=== PATIENT | male | born 1985 ===

== ENCOUNTER 2021-07-14 09:06 | Outpatient (REF) | payer OTHER, SELFPAY | END 2021-07-14 09:07 | disposition home or self-care (01) | LOC: HO.HMGCLDS 09:06 | PROVIDERS: Visit Provider Internal Medicine | DX: Z20.822 Contact with and (suspected) exposure to COVID-19 (principal) | CPT/HCPCS: C9803; U0003; U0005 ==

== ENCOUNTER → 2023-09-20 07:42 | Outpatient (BNVA) | payer OTHER, SELFPAY | PROVIDERS: PCP Pediatrics; Visit Provider Physician Assistant | DX: S39.012A Strain of muscle, fascia and tendon of lower back, initial encounter (principal); X50.3XXA Overexertion from repetitive movements, initial encounter | CPT/HCPCS: 99204 ==

== ENCOUNTER → 2023-10-04 08:26 | Outpatient (BNVA) | payer OTHER, SELFPAY | PROVIDERS: PCP Pediatrics; Visit Provider Physician Assistant | DX: S39.012D Strain of muscle, fascia and tendon of lower back, subsequent encounter (principal); X50.3XXD Overexertion from repetitive movements, subsequent encounter | CPT/HCPCS: 99213 ==

== ENCOUNTER → 2023-10-25 08:41 | Outpatient (BNVA) | payer OTHER, SELFPAY | PROVIDERS: PCP Pediatrics; Visit Provider Physician Assistant | DX: S39.012D Strain of muscle, fascia and tendon of lower back, subsequent encounter (principal); X50.3XXD Overexertion from repetitive movements, subsequent encounter | CPT/HCPCS: 99214 ==

== ENCOUNTER → 2023-11-15 09:19 | Outpatient (BNVA) | payer OTHER, SELFPAY | PROVIDERS: Visit Provider Physician Assistant Medical | DX: S39.012D Strain of muscle, fascia and tendon of lower back, subsequent encounter (principal); X50.3XXD Overexertion from repetitive movements, subsequent encounter | CPT/HCPCS: 99213 ==

== ENCOUNTER 2023-11-29 07:58 | Outpatient (REF) | payer OTHER, SELFPAY ==
--- NOTE | ~2023-11-29 | MR_ITS ---
EXAMINATION: MR LUMBAR SPINE WITHOUT CONTRAST CLINICAL INFORMATION: Change in pain. Prior fall and back injury 3 months ago. COMPARISON: None available. TECHNIQUE: Multiplanar, multisequence imaging was obtained. Slightly limited study with motion artifacts. FINDINGS: VERTEBRAL BODIES AND PARASPINAL STRUCTURES: There is very mild anterosuperior endplate edema at the T12 and L2 levels, which may be reactive to mild degenerative spurring. The discs are well-hydrated. There are no compression fractures or significant subluxations. The paraspinal soft tissues are normal. CONUS MEDULLARIS AND CAUDA EQUINA: The distal cord, conus tip, and cauda equina nerve roots are normal. SPINAL LEVELS: L1-L2: No disc pathology, central canal stenosis, or foraminal narrowing. Mild anterior endplate spurring. L2-L3: No disc abnormality. No central canal stenosis or foraminal narrowing. L3-L4: Very mild facet arthropathy. Minimal annular bulge without central canal stenosis or foraminal narrowing. L4-L5: Mild facet arthropathy and minimal disc bulge. No central canal stenosis. Disc minimally encroaches upon the neural foramina. L5-S1: No disc abnormality. Mild facet arthropathy without central canal stenosis. Bulging disc abuts the exiting right L5 nerve root without compression deformity. MR/MR lumbar spine wo con IMPRESSION: Very mild spondylitic changes. No focal disc protrusion or central canal stenosis. Bulging disc at L5-S1 abuts the exiting right L5 nerve root in the neural foramen without compression deformity. Very mild anterosuperior endplate edema and osseous spurring at the T12 and L2 levels.
== END 2023-11-29 07:59 | disposition home or self-care (01) ==
LOC: HO.MRI 07:58
PROVIDERS: Visit Provider Internal Medicine
DX: M51.36 Other intervertebral disc degeneration, lumbar region (principal)
CPT/HCPCS: 72148

== ENCOUNTER → 2023-12-19 10:06 | Outpatient (BNVA) | payer OTHER, SELFPAY | PROVIDERS: Visit Provider Physician Assistant | DX: S39.012D Strain of muscle, fascia and tendon of lower back, subsequent encounter (principal); X50.3XXD Overexertion from repetitive movements, subsequent encounter | CPT/HCPCS: 99214 ==

== ENCOUNTER 2024-01-09 09:15 | Outpatient (AMB) | payer OTHER, SELFPAY ==
--- NOTE | 2024-01-09 09:26 | MHC.OFFVIS ---
Vital Signs 01/09/24 09:33 Height 5 ft 8 in Weight 257 lb 8 oz BMI 39.1 BP 128/76 Blood Pressure Location Lt brachial Position Sitting Respiration 16 Pulse 63 Pulse Source Pulse Oximeter Pulse Oximetry (%) 98 Oxygen Delivery Method Room Air Intake Visit Reasons: Low Back Pain/Disc Herniation Intake Note: Patient comes in for initial visit was referred by work connection. Reports pain 9/10. Allergies No Known Allergies Allergy (Verified 01/09/24 09:33) HPI Comments Details: Marcial is very pleasant 38 years old gentleman who presents in my office by referral were connections. He reported that 3 months ago he missed step at his work and while preventing himself from falling felt severe pain in the center of his lumbar spine. He reports that pain is severe and level of the pain is 10/10. His pain is mostly aggravated when he is standing and walking. He feels almost no pain when positioned flattened bed. He can not sleep normally. 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 In terms of tissue damage he reports his pain as dull, sore, hurting, aching, heavy sensation. He also reports his pain as aching and pins and needle sensation. Were connection prescribed him lidocaine patches naproxen and methocarbamol. He has MRI available in the chart dictation see as below. Physical therapy was done for him 6 sessions he reports only aggravation of the pain. His past medical history is significant for kidney stones no surgical history I presume kidney stones were passing on that self he admits smoking cigarettes 1 pack per week he admits drinking alcohol 12 packs per week he admits drinking lots of soda and caffeinated beverages. He denies recreational drugs. Review of Systems Const All systems reviewed & are unremarkable except as noted in HPI and below Reports no additional complaints ENT Reports Normal hearing present Card Reports no additional complaints Resp Reports no additional complaints GI Reports no additional complaints Reports as per HPI Musc Reports as per HPI Neuro Reports no additional complaints, Reports Normal hearing present, Denies Abnormal speech present, Denies confusion and Denies Sensory deficit (Neuro) Psych Reports no additional complaints and Denies confusion Physical Exam Vital Signs: Last Vital Signs Pulse 63 01/09/24 09:33 Resp 16 01/09/24 09:33 BP 128/76 01/09/24 09:33 Pulse Ox 98 01/09/24 09:33 Oxygen Delivery Method Room Air 01/09/24 09:33 BMI result Body Mass Index 39.1 Const General: no acute distress; No confusion Nutritional Appearance: obese morbidly obese Orientation/consciousness: patient oriented x3 and No confusion Eyes General: appearance normal, both eyes and all related structures Pupils: Equal, round and reactive pupils present EOM: EOMs intact bilaterally Neck Neck: Yes full ROM Chest Chest palpation & inspection: normal inspection of the chest Resp Effort & Inspection: normal respiratory effort, able to speak in complete sentences, normal respiratory pattern, no audible wheezes and no cough Cardio Jugular venous distension: no JVD GI Inspection: Yes normal to inspection Back/Spine/Pelvis Other: Able to stand on bilateral tiptoes in bilateral heels demonstrating normal strength of bilateral lower extremities. Able to flex himself forward to about 80 degrees before his pain starts to bother him, unable to flex himself backwards. SLR is negative bilaterally. Lassegue is negative bilaterally. Travis test is negative bilaterally. Stinchfield test is negative bilaterally. Loading test is positive bilaterally. Valsalva maneuver is negative, Neuro General: patient oriented x3, gait normal and No confusion Cranial nerves: Yes CN's II-XII intact bilaterally, Yes Equal, round and reactive pupils present, Yes Normal hearing present and Yes Ability to bilaterally elevate shoulders present Speech: No Abnormal speech present Gait exam (Neuro): Normal gait present Motor exam (neuro): 5/5 motor strength present throughout Sensory Exam: No Sensory deficit (Neuro) Extrem General: No pedal edema Psych Speech and movement: Normal speech and movement present Affect: normal affect Attitude: cooperative Thought process: Normal thought process present Thought content: Normal thought content present Insight: Good insight present (Psych) Judgement: Good judgement present (Psych) Results Reviewed Results Reviewed: MRI lumbar spine 11/29/2023. Findings: There is very mild enter superior endplate edema at T12 and L1-2 levels which may be reactive to mild degenerative spurring. The discs are well hydrated. There are no compression fractures or significant subluxations. The paraspinal soft tissues are normal. Conus medullaris and cauda equina. Distal cord conus tip and cauda equina nerve roots are normal. Spinal levels: L1-L2 no disc pathology central canal stenosis foraminal narrowing mild anterior endplate spurring. L2-L3 no disc abnormality no central canal or neural foraminal narrowing. L3-L4: Very mild facet arthropathy minimal annular disc bulge without central canal stenosis or foraminal narrowing. L4-5 mild facet arthropathy and minimal disc bulge. No central stenosis. Disc minimally encroaches upon the neural foramina. L5-S1: No disc abnormality mild facet arthropathy without central canal stenosis. Bulging discs abuts the exiting right L4 nerve root without compression deformity. Assessment & Plan Assessment & Plan (1) Obesity (BMI 30-39.9): Code(s): E66.9 - Obesity, unspecified Category: Medical (2) Spondylosis of lumbar region without myelopathy or radiculopathy: Code(s): M47.816 - Spondylosis without myelopathy or radiculopathy, lumbar region Category: Medical Plan I will schedule this patient for diagnostic bilateral medial branch block L3-L4 does ramus L5. He completed physical therapy was pain aggravation only. He is taking NSAIDs and NSAIDs do not help him. The treatment of his condition could include diagnostic medial branch block and after that the patient could be offered radiofrequency ablation or sprint PNS if the diagnostic medial branch block will be positive for lower lumbar spine facet arthropathy. Coding Level of Care Code New Pt Level 3 (70120) Diagnoses Obesity (BMI 30-39.9) E66.9 Spondylosis of lumbar region without myelopathy or radiculopathy M47.816
[2024-01-09 09:33] VITALS: BP 128/76; PULSE 63; RESP 16; O2SAT 98; BMI 39.1
== END 2024-01-09 10:34 | disposition home or self-care (01) ==
PROVIDERS: Visit Provider Anesthesiology
DX: E66.9 Obesity, unspecified (principal); M47.816 Spondylosis without myelopathy or radiculopathy, lumbar region
CPT/HCPCS: 99203

== ENCOUNTER → 2024-01-09 09:15 | Outpatient (BNVA) | payer OTHER, SELFPAY | PROVIDERS: Visit Provider Anesthesiology | DX: M47.816 Spondylosis without myelopathy or radiculopathy, lumbar region (principal); E66.9 Obesity, unspecified; Z68.39 Body mass index [BMI] 39.0-39.9, adult | CPT/HCPCS: 99202 ==

== ENCOUNTER → 2024-01-23 09:29 | Outpatient (BNVA) | payer OTHER, SELFPAY | PROVIDERS: Visit Provider Physician Assistant | DX: S39.012D Strain of muscle, fascia and tendon of lower back, subsequent encounter (principal); X50.3XXD Overexertion from repetitive movements, subsequent encounter | CPT/HCPCS: 99213 ==

== ENCOUNTER → 2024-02-22 14:57 | Outpatient (BNVA) | payer OTHER, SELFPAY | PROVIDERS: Visit Provider Physician Assistant | DX: S39.012D Strain of muscle, fascia and tendon of lower back, subsequent encounter (principal); X50.3XXD Overexertion from repetitive movements, subsequent encounter | CPT/HCPCS: 99213 ==

== ENCOUNTER → 2024-03-12 14:58 | Outpatient (BNVA) | payer OTHER, SELFPAY | PROVIDERS: Visit Provider Physician Assistant | DX: M54.50 Low back pain, unspecified (principal) | CPT/HCPCS: 99213 ==

== ENCOUNTER → 2024-04-10 15:22 | Outpatient (BNVA) | payer OTHER, SELFPAY | PROVIDERS: Visit Provider Physician Assistant | DX: S39.012D Strain of muscle, fascia and tendon of lower back, subsequent encounter (principal); X50.3XXD Overexertion from repetitive movements, subsequent encounter | CPT/HCPCS: 99213 ==

== ENCOUNTER 2024-04-15 08:09 | Outpatient (REF) | payer OTHER, SELFPAY | END 2024-04-15 08:10 | disposition home or self-care (01) | LOC: CF 08:09 | PROVIDERS: Visit Provider Anesthesiology | DX: M47.816 Spondylosis without myelopathy or radiculopathy, lumbar region (principal) | CPT/HCPCS: 64493; 64494; J2795; Q9967 ==

== ENCOUNTER 2024-04-15 08:12 | Outpatient (AMB) | payer OTHER, SELFPAY ==
--- NOTE | 2024-04-15 08:57 | A.OFFVIS_ITS ---
Vital Signs 04/15/24 10:10 04/15/24 10:11 Height 5 ft 8 in 5 ft 8 in Weight 257 lb 8 oz 257 lb 8 oz BMI 39.1 39.1 BP 114/70 108/76 Blood Pressure Location Lt brachial Lt brachial Position Sitting Sitting Respiration 16 16 Pulse 60 60 Pulse Source Pulse Oximeter Pulse Oximeter Pulse Oximetry (%) 99 99 Oxygen Delivery Method Room Air Room Air Comment pre-op post-op Intake Visit Reasons: BILATERAL DIAGNOSTIC L3, L4, DRL5 MBB Allergies No Known Allergies Allergy (Verified 04/15/24 10:12) Physical Exam Vital Signs: Last Vital Signs Pulse 60 04/15/24 10:11 Resp 16 04/15/24 10:11 BP 108/76 04/15/24 10:11 Pulse Ox 99 04/15/24 10:11 Oxygen Delivery Method Room Air 04/15/24 10:11 BMI result Body Mass Index 39.1 Assessment & Plan Assessment & Plan (1) Spondylosis of lumbar region without myelopathy or radiculopathy: Code(s): M47.816 - Spondylosis without myelopathy or radiculopathy, lumbar region Category: Medical Plan Diagnostic medial branch block L3,L4 dorsal ramus L5 bilateral.? ? ?Informed consent was explained to the patient. All questions were explained and? answered.? The patient was taken inside the operating room where she was positioned prone on the operating table. Time-out was performed delineating correct site, side, the nature of the procedure, patient's allergy, . All operating room staff was participating in OR time-out procedure. ? ? The lower back was prepped with ChloraPrep and draped with sterile towels.? C- arm was brought over the operating field and sq picture of L4-, L5 vertebra and S1 AREA were delineated on the screen.? Point of interest were delineated as confluence of superior articular process of L4 and L5 vertebra bilaterally with corresponding transverse processes as well as confluence of the sacral alae bilaterally with superior articular process of S1.? The projection of the point of interest to the skin were injected with the small amount of local anesthetic lidocaine 2% mixed with ropivacaine 0.5% 1-1 approcimately 1 cc.? After that 22 gauge 3.5 inch spinal needle was driven sequentially to the points of interest i n tunnel vision fashion. After needles gently contacted the bone at the point of interests the needle was injected with small amount of the contrast.? The injection of the contrast did not demonstrate any intravascular or intrathecal spread of the contrast.? After that injection of the? ropivacaine 0.5%-1cc was performed at each needle location.??after that the needles were removed and Bandaids were applied. ? Upon completion of the injections? needle was? removed and sterile Band-Aids were applied.? The patient tolerated procedure very well. Orders: Orders FL guidance in treatment room Today M47.816 - Spondylosis without myelopathy or radiculopathy, lumbar region Coding Level of Care Code Procedure Only Diagnoses Spondylosis of lumbar region without myelopathy or radiculopathy M47.816
[2024-04-15 10:10] VITALS: BP 114/70; PULSE 60; RESP 16; O2SAT 99; BMI 39.1
[2024-04-15 10:11] VITALS: BP 108/76; PULSE 60; RESP 16; O2SAT 99; BMI 39.1
== END 2024-04-15 09:49 | disposition home or self-care (01) ==
LOC: HO.PMCPRC 08:12
PROVIDERS: Visit Provider Anesthesiology
DX: M47.816 Spondylosis without myelopathy or radiculopathy, lumbar region (principal)
CPT/HCPCS: 64493; 64494

== ENCOUNTER 2024-04-21 09:04 | Outpatient (AMB) | payer OTHER, SELFPAY ==
--- NOTE | 2024-04-21 09:10 | MHC.OFFVIS ---
Vital Signs 04/21/24 09:16 Height 5 ft 8 in Weight 260 lb 4 oz BMI 39.6 BP 130/78 Blood Pressure Location Lt brachial Position Sitting Respiration 16 Pulse 70 Pulse Source Pulse Oximeter Pulse Oximetry (%) 98 Oxygen Delivery Method Room Air Intake Visit Reasons: BILATERAL DIAGNOSTIC L3, L4, DRL5 MBB Intake Note: Patient comes in for post-op. Reports pain 6/10. Allergies No Known Allergies Allergy (Verified 04/21/24 09:10) HPI Comments Details: Marcial is back in my office after diagnostic medial branch block L3-L4 does ramus L5. Patient reports pain aggravation after the injection. He reports no pain improvement at all. He reports flexing forward aggravates his pain. However there is no signs of sacroiliitis Travis test is negative. His MRI is also not very impressive. The report of the MRI is as below. On the MRI there is no significant endplate changes which would justify consideration about vertebrogenic pain. We discussed situation with the patient today. I also recommended him to start physical therapy. I also recommended him to purchase 10s unit online and tried 10s unit at his household. We decided that I will schedule appointment with him in 2 months. Prior: Were connection referral. 3 months ago he missed step at his work and while preventing himself from falling felt severe pain in the center of his lumbar spine. He reports that pain is severe and level of the pain is 10/10. His pain is mostly aggravated when he is standing and walking. He feels almost no pain when positioned flattened bed. He also reports his pain as aching and pins and needle sensation. Work connection prescribed him lidocaine patches naproxen and methocarbamol. He has MRI available in the chart dictation see as below. Physical therapy was done for him 6 sessions he reports only aggravation of the pain. His past medical history is significant for kidney stones no surgical history I presume kidney stones were passing on that self he admits smoking cigarettes 1 pack per week he admits drinking alcohol 12 packs per week he admits drinking lots of soda and caffeinated beverages. He denies recreational drugs. Review of Systems Const All systems reviewed & are unremarkable except as noted in HPI and below ENT Reports Normal hearing present Neuro Reports Normal hearing present, Denies Abnormal speech present, Denies confusion and Denies Sensory deficit (Neuro) Psych Denies confusion Physical Exam Vital Signs: Last Vital Signs Pulse 70 04/21/24 09:16 Resp 16 04/21/24 09:16 BP 130/78 04/21/24 09:16 Pulse Ox 98 04/21/24 09:16 Oxygen Delivery Method Room Air 04/21/24 09:16 BMI result Body Mass Index 39.6 Const General: no acute distress; No confusion Nutritional Appearance: obese morbidly obese Orientation/consciousness: patient oriented x3 and No confusion Eyes General: appearance normal, both eyes and all related structures Pupils: Equal, round and reactive pupils present EOM: EOMs intact bilaterally Neck Neck: Yes full ROM Chest Chest palpation & inspection: normal inspection of the chest Resp Effort & Inspection: normal respiratory effort, able to speak in complete sentences, normal respiratory pattern, no audible wheezes and no cough Cardio Jugular venous distension: no JVD GI Inspection: Yes normal to inspection Back/Spine/Pelvis Other: Able to stand on bilateral tiptoes in bilateral heels demonstrating normal strength of bilateral lower extremities. Able to flex himself forward to about 80 degrees before his pain starts to bother him, unable to flex himself backwards. SLR is negative bilaterally. Lassegue is negative bilaterally. Travis test is negative bilaterally. Stinchfield test is negative bilaterally. Loading test is positive bilaterally. Valsalva maneuver is negative, Neuro General: patient oriented x3, gait normal and No confusion Cranial nerves: Yes CN's II-XII intact bilaterally, Yes Equal, round and reactive pupils present, Yes Normal hearing present and Yes Ability to bilaterally elevate shoulders present Speech: No Abnormal speech present Gait exam (Neuro): Normal gait present Motor exam (neuro): 5/5 motor strength present throughout Sensory Exam: No Sensory deficit (Neuro) Extrem General: No pedal edema Psych Speech and movement: Normal speech and movement present Affect: normal affect Attitude: cooperative Thought process: Normal thought process present Thought content: Normal thought content present Insight: Good insight present (Psych) Judgement: Good judgement present (Psych) Assessment & Plan Assessment & Plan (1) Spondylosis of lumbar region without myelopathy or radiculopathy: Code(s): M47.816 - Spondylosis without myelopathy or radiculopathy, lumbar region Category: Medical (2) Low back pain: Code(s): M54.50 - Low back pain, unspecified Category: Medical Plan We agreed that I will schedule him for physical therapy with [place] physical [place] [facility] We also agreed that he will obtain 10s unit online. He wants to try this device. I will see him in 2 months. Unfortunately on the MRI there is nothing which could point out to his pain. No vertebra genic changes. The Travis test is negative bilaterally. He reports pain aggravation with flexing forward. He reports absence of pain when he lies down. Orders: Orders PT Evaluation and Treatment Today M47.816 - Spondylosis without myelopathy or radiculopathy, lumbar region, M54.50 - Low back pain, unspecified Patient Instructions: I here by testify that I spent 32 minutes in conversation with this patient as well as planning his care and organizing this note. Coding Level of Care Code Est Pt Level 4 (62337) Diagnoses Spondylosis of lumbar region without myelopathy or radiculopathy M47.816 Low back pain M54.50
[2024-04-21 09:16] VITALS: BP 130/78; PULSE 70; RESP 16; O2SAT 98; BMI 39.6
== END 2024-04-21 09:56 | disposition home or self-care (01) ==
PROVIDERS: Visit Provider Anesthesiology
DX: M47.816 Spondylosis without myelopathy or radiculopathy, lumbar region (principal); M54.50 Low back pain, unspecified
CPT/HCPCS: 99214

== ENCOUNTER → 2024-04-21 09:04 | Outpatient (BNVA) | payer OTHER, SELFPAY | PROVIDERS: Visit Provider Anesthesiology | DX: M47.816 Spondylosis without myelopathy or radiculopathy, lumbar region (principal); M54.50 Low back pain, unspecified | CPT/HCPCS: 99212 ==

== ENCOUNTER → 2024-04-21 10:43 | Outpatient (BNVA) | payer OTHER, SELFPAY | PROVIDERS: Visit Provider Physician Assistant Medical | DX: S39.012D Strain of muscle, fascia and tendon of lower back, subsequent encounter (principal); X50.3XXD Overexertion from repetitive movements, subsequent encounter | CPT/HCPCS: 99213 ==

== ENCOUNTER → 2024-05-01 14:57 | Outpatient (BNVA) | payer OTHER, SELFPAY | PROVIDERS: Visit Provider Physician Assistant | DX: M47.16 Other spondylosis with myelopathy, lumbar region (principal) | CPT/HCPCS: 99213 ==

== ENCOUNTER → 2024-05-21 14:55 | Outpatient (BNVA) | payer OTHER, SELFPAY | PROVIDERS: Visit Provider Physician Assistant | DX: S39.012D Strain of muscle, fascia and tendon of lower back, subsequent encounter (principal); X50.3XXD Overexertion from repetitive movements, subsequent encounter | CPT/HCPCS: 99213 ==

== ENCOUNTER → 2024-05-29 15:07 | Outpatient (BNVA) | payer OTHER, SELFPAY | PROVIDERS: Visit Provider Physician Assistant Medical | DX: M47.816 Spondylosis without myelopathy or radiculopathy, lumbar region (principal); M51.379 Other intervertebral disc degeneration, lumbosacral region without mention of lumbar back pain or lower extremity pain; S39.012D Strain of muscle, fascia and tendon of lower back, subsequent encounter; X50.3XXD Overexertion from repetitive movements, subsequent encounter | CPT/HCPCS: 99213 ==

== ENCOUNTER → 2024-06-27 14:56 | Outpatient (BNVA) | payer OTHER, SELFPAY | PROVIDERS: Visit Provider Physician Assistant | DX: M47.16 Other spondylosis with myelopathy, lumbar region (principal); M51.379 Other intervertebral disc degeneration, lumbosacral region without mention of lumbar back pain or lower extremity pain | CPT/HCPCS: 99213 ==

== ENCOUNTER 2024-07-24 15:00 | Outpatient (RCR) | payer OTHER, BC, SELFPAY ==
--- NOTE | 2024-05-12 14:32 | MHC.PT.EP ---
[facility] [place] Office [place] Office [place] [facility] [address] Tom Villatoro [address] [phone] F: [phone] F: [phone] F: [phone] F: [phone] Physical Therapy Plan of Care Date of Evaluation: 05/12/24 Date of Surgery: Diagnosis: low back pain Assessment: Patient is a 38 year old R handed male who presents with s/s consistent with low back pain. He works with daily job demands including walk, lifting, climbing stairs. Patient past medical history includes back related injury > 5 years ago that completely resolved per pt report. Current impairments include pain, flexibility, posture, ROM, strength, activity tolerance and functional mobility. Functional limitations include decreased ability to walk, stand, drive, lift, climb stairs and be on feet for prolonged periods of time. Patient is motivated with good rehab potential. Skilled PT will address impairments and functional limitations in order to achieve goals. 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 Manual therapy to restore motion and function. Therapeutic exercise to improve strength and flexibility. Neuromuscular re-education for posture and balance. Therapeutic activities to return to functional activities of daily living. Electronically signed by: Greg Tracey, PT Please sign and return to therapist. Thank you for your referral.
--- NOTE | 2024-10-03 08:51 | MHC.PT.DC ---
[facility] [place] Office [place] Office [place] Office [address] Tom Villatoro [address] [phone] F: [phone] F: [phone] F: [phone] F: [phone] Physical Therapy Discharge Report Diagnosis: low back pain Date of Surgery: Date of Evaluation: 05/12/24 Date of Discharge: 08/14/24 Treatments to Date: 9 Cancellations to Date: No Shows to Date: Discharge Status: Improved Function Independent with HEP Patient Elected to Stop Discharge Summary: 07/24; Pt Staed pain has moved to upper back. Stretches relieved some of the tightness, but pain was the same. Pt sees 07/25. 07/04/24: Pt progressing well with skilled PT. Progressing toward goals. He still has minor TTP, pain with full AROM. He oswestry is 18%. He has improved body mechanics and postural awareness. We will begin lifting mechanics next visit. In order to ensure optimal progress on impairments and functional limitations, including sleep, lifting, bending, and carrying, we will continue 2x/week for 3 more weeks to ensure optimal progress and safe return to all activities. 07/01/24: pt has been feeling increased pain reportedly from snow removal. we held progression and continued IFC for pain management. 06/18; Pt conts with pain and reduced mobility. Pt has palpable nodule L L3,4 L/S. 06/10/24: pt progressing well overall. no s/s. added TRX squats to cue on body mechanics. continue to progress as tolerated. 06/06/24: pt progressing well. less s/s. full pain free AROM. continue to progress hip and core strength and body mechanics. 06/04/24: pt progressing well with skilled PT. min s/s today. we added core strength ex with no adverse reactions. continue to progress as tolerated. 05/22; Pt hip fatigued after exs. Pain with SB. Relief after manual RX. 05/20; Pt had reduced sxs after manual RX. Pt has nodules L/S that are palpable, but not c/o pain with pressure. Patient is a 38 year old R handed male who presents with s/s consistent with low back pain. He works with daily job demands including walk, lifting, climbing stairs. Patient past medical history includes back related injury > 5 years ago that completely resolved per pt report. Current impairments include pain, flexibility, posture, ROM, strength, activity tolerance and functional mobility. Functional limitations include decreased ability to walk, stand, drive, lift, climb stairs and be on feet for prolonged periods of time. Patient is motivated with good rehab potential. Skilled PT will address impairments and functional limitations in order to achieve goals. Normal skin appearance after IFC. Electronically signed by: Greg Tracey, PT Please sign and return to therapist. Thank you for your referral.
== END 2024-10-03 08:55 | disposition home or self-care (01) ==
LOC: HO.PTCHIC 15:00
PROVIDERS: Visit Provider Anesthesiology
DX: M47.816 Spondylosis without myelopathy or radiculopathy, lumbar region (principal); M54.50 Low back pain, unspecified
CPT/HCPCS: 97014; 97110; 97140; 97161; 97164

== ENCOUNTER → 2024-08-06 15:07 | Outpatient (BNVA) | payer OTHER, SELFPAY | PROVIDERS: Visit Provider Physician Assistant | DX: S39.012D Strain of muscle, fascia and tendon of lower back, subsequent encounter (principal); X50.3XXD Overexertion from repetitive movements, subsequent encounter; Z02.79 Encounter for issue of other medical certificate | CPT/HCPCS: 99213 ==